=== PATIENT | female | born 1930 | race Caucasian/White ===

== ENCOUNTER 2017-12-06 20:07 | Emergency (ER) | payer MEDICARE, BC ==
--- OUTSIDE RECORDS SUMMARY | 2017-12-06 20:37 | XMS REPORT ---
:1930 External Reference #:[id number] Author Organization [employer] Address [address] [place] [address] Phone [phone] Care Team Providers Name Role Phone Jenni Johnston MD Primary Care Physician Unavailable Payers Type Date Identification Numbers Payment Provider Subscriber Medicare Primary Policy Number: [id number] Medicare Reena Denis PayID: [id number] [address] [place] [address] [facility] Part B Policy Number: [id number] [facility] Reena Denis PayID: [id number] [address] [place] [address] Problems Date Description Provider Status Onset: 03/21/2013 Aortic valve disorder Shekhar Guerrier M.D., [facility], Active [facility] Onset: 03/21/2013 Chronic ischemic heart disease Shekhar Guerrier M.D., [facility], Active [facility] Onset: 03/21/2013 Benign essential hypertension Shekhar Guerrier M.D., [facility], Active [facility] Onset: 03/21/2013 Hyperlipidemia Shekhar Guerrier M.D., [facility], Active [facility] Onset: 03/21/2013 Mitral valve disorder Shekhar Guerrier M.D., [facility], Active [facility] Onset: 05/07/2013 Complete atrioventricular block Shekhar Guerrier M.D., [facility], Active [facility] Onset: 05/07/2013 Dyspnea Shekhar Guerrier M.D., [facility], Active [facility] Onset: 11/02/2013 Essential hypertension Shekhar Guerrier M.D., [facility], Active [facility] Onset: 06/02/2015 Cardiac pacemaker in situ Shekhar Guerrier M.D., [facility], Active [facility] Onset: 06/14/2016 Heart valve replacement Shekhar Guerrier M.D., [facility], Active [facility] Onset: 12/15/2016 Athscl heart disease of [place] Shekhar Guerrier M.D., [facility], Active coronary artery w/o ang pctrs [facility] Family History Date Family Member(s) Problem(s) Comments Father Hypertension Father Heart Disease Father Stroke Mother Non Hodgkin's Lymphoma Social History Type Date Description Comments Marital Status Lives With Alone Occupation Retired Smokeless Tobacco Never Used Smokeless Tobacco ETOH Use Occasionally consumes wine one glass nightly with dinner Smoking Patient is a former smoker quit in 1980 Recreational Drug Use Denies Drug Use Daily Caffeine Consumes on average 2 cups of regular coffee per day Exercise Type/Frequency Exercises rarely Allergies, Adverse Reactions, Alerts Date Description Reaction Status Severity Comments 11/30/2017 Percocet active 11/14/2012 NKDA inactive 11/30/2017 NKDA inactive Medications Medication Date Status Form Strength Qnty SIG Indications Ordering Provider Metoprolol 12/14 Active Tablets 25mg 90tab 1 by mouth Kamron S. Succinate ER 24HR s every day DO Price [facility] Methotrexate 06/07 Active Tablets 2.5mg 2 tabs po Tuesday Atorvastatin Active Tablets 20mg 1 po qd Cardi, (adjusted Jose Armando, from 40 mg MD daily by PCP) Divalproex Sodium Active Tablets 125mg [address] Jose Armando MD Bupropion HCL SR Active Tablets 100mg 1 po qd Kooper ER 12HR , Michelle, G[employer] APPLIANCE ADJUSTER Ropinirole HCL Active Tablets 0.5mg 1 po bid Restasis Active Emulsion 0.05% one stone each eye bid Flax Oil Active Oil qd Calcium 500 +D Active qd Vitamin C Active 500mg qd Aspirin Active Tablets 81mg 1 by mouth every day Ocuvite Active Tablets 1 po bid Unknown Preservision /0000 Fish Oil Active Capsules 1000mg 1 by mouth Unknown / every day Multivitamins Active Capsules 1 by mouth Unknown / every day Genteal Active Gel 0.25-0.3% 1 gtt qid Unknown /0000 in each eye Proventil HFA Active Aerosol 108(90Bas 2 puffs by Unknown /0000 e) mouth every mcg/Act 4 hours as needed Spiriva Handihaler Active Capsules 18mcg 1 Unknown / inhalation by mouth every morning Losartan Potassium Active Tablets 25mg 1 by mouth Unknown / every day Amlodipine Active Tablets 5mg 1 by mouth Unknown Bes every day Methylprednisolone 06/07 Hx 4mg twice weekly - 12/14 Metoprolol 11/02 Hx Tablets 25mg 90tab 1 tablet by Shekhar Rudolph ER 24HR s mouth daily Kelle Guerrier M.D., 11/01 [facility] 09/20 Hx Tablets 5mg 90tab 1 po daily Tito Kelle Heath M.D. 11/01 Losartan Potassium Hx 1 po qd Cardina, Kelle Suárez MD 05/06 Omeprazole Hx Capsules 20mg 1 po bid Cardina, Kelle Guzman MD 06/13 Aspirin Hx Tablets 325mg 1 po qd Unknown / - 11/01 Ocuvite Extra Hx qd Unknown / - 06/04 Losartan Potassium Hx Tablets 100mg 1 po qd Unknown - 05/31 Probiotic Hx Capsules 1 by mouth Unknown / every day - 06/13 Diclofenac Sodium Hx Tablets 50mg take one Unknown tablet by - mouth twice 06/13 a day needed Folic Acid Hx Tablets 1mg 1 by mouth Unknown / every day Medications Administered in Office Medication Date Status Form Strength Qnty SIG Indications Ordering Provider Inj, Administered Injection Miriam Regadenoson, Arsenio Orosco, 0.1 MG Josemanuel Technetium TC Administered Injection Miriam 99M Paulina Timmons M.D. Per Unit Dose Up To 40 Millicuries Vital Signs Date Vital Result Comment 11/30/2017 Height 59 inches 4'11" Weight 97.00 lb Heart Rate 58 /min BP Systolic 116 mmHg BP Diastolic 72 mmHg Respiratory Rate 16 /min Body Temperature 97.4 F BMI (Body Mass Index) 19.6 kg/m2 01/12/2017 Height 57 inches 4'9" Weight 102.00 lb Heart Rate 60 /min BP Systolic 98 mmHg BP Diastolic 66 mmHg Respiratory Rate 15 /min Body Temperature 97.7 F BMI (Body Mass Index) 22.1 kg/m2 12/15/2016 Height 57 inches 4'9" Weight 102.00 lb with shoes Heart Rate 64 /min sit and 60 stand BP Systolic Sitting 106 mmHg Rue reg cuff BP Diastolic Sitting 80 mmHg Rue reg cuff BP Systolic Standing 100 mmHg Rue reg cuff BP Diastolic Standing 74 mmHg Rue reg cuff Respiratory Rate 17 /min BMI (Body Mass Index) 22.1 kg/m2 Ejection Fraction 60-65% date 10/18/13 ECHO 12/02/2016 Height 57 inches 4'9" Weight 100.00 lb Heart Rate 60 /min BP Systolic 115 mmHg BP Diastolic 64 mmHg Body Temperature 97.7 F BMI (Body Mass Index) 21.6 kg/m2 11/02/2016 Height 57 inches 4'9" Weight 100.00 lb Heart Rate 68 /min BP Systolic Sitting 100 mmHg BP Diastolic Sitting 65 mmHg Body Temperature 98.3 F BMI (Body Mass Index) 21.6 kg/m2 06/14/2016 Height 58 inches 4'10" Weight 103.50 lb with shoes Heart Rate 58 /min BP Systolic Sitting 118 mmHg LA reg cuff BP Diastolic Sitting 58 mmHg LA reg cuff BP Systolic Standing 128 mmHg LA reg cuff BP Diastolic Standing 68 mmHg LA reg cuff BMI (Body Mass Index) 21.6 kg/m2 06/02/2015 Height 58 inches 4'10" Weight 109.00 lb Heart Rate 64 /min 70 BP Systolic Sitting 118 mmHg right arm, reg cuff BP Diastolic Sitting 60 mmHg right arm, reg cuff BP Systolic Standing 118 mmHg right arm, reg cuff BP Diastolic Standing 58 mmHg right arm, reg cuff Respiratory Rate 20 /min BMI (Body Mass Index) 22.8 kg/m2 Ejection Fraction 60-65% 10/18/13 06/05/2014 Height 58 inches 4'10" Weight 108.00 lb Heart Rate 62 /min 64 BP Systolic Sitting 116 mmHg right arm, reg cuff BP Diastolic Sitting 54 mmHg right arm, reg cuff BP Systolic Standing 116 mmHg right arm, reg cuff BP Diastolic Standing 56 mmHg right arm, reg cuff Respiratory Rate 20 /min BMI (Body Mass Index) 22.6 kg/m2 12/06/2013 Height 58 inches 4'10" Weight 110.00 lb Heart Rate 64 /min BP Systolic Sitting 124 mmHg LA, reg cuff BP Diastolic Sitting 76 mmHg LA, reg cuff BP Systolic Standing 126 mmHg LA BP Diastolic Standing 68 mmHg LA Respiratory Rate 16 /min BMI (Body Mass Index) 23.0 kg/m2 11/02/2013 Height 58 inches 4'10" Weight 110.00 lb Heart Rate 80 /min 86 BP Systolic Sitting 148 mmHg left arm, reg cuff BP Diastolic Sitting 64 mmHg left arm, reg cuff BP Systolic Standing 132 mmHg left arm, reg cuff BP Diastolic Standing 60 mmHg left arm, reg cuff Respiratory Rate 20 /min BMI (Body Mass Index) 23.0 kg/m2 05/29/2013 Height 57 inches 4'9" Weight 115.25 lb with shoes Heart Rate 76 /min 76 sit and stand HR reg BP Systolic Sitting 114 mmHg Ra reg cuff BP Diastolic Sitting 60 mmHg Ra reg cuff BP Systolic Standing 120 mmHg Ra reg cuff BP Diastolic Standing 66 mmHg Ra reg cuff Respiratory Rate 17 /min BMI (Body Mass Index) 24.9 kg/m2 05/07/2013 Height 57 inches 4'9" Weight 113.00 lb no shoes Heart Rate 74 /min BP Systolic Sitting 136 mmHg Ra, reg cuff BP Diastolic Sitting 68 mmHg Ra, reg cuff BP Systolic Standing 138 mmHg BP Diastolic Standing 70 mmHg Respiratory Rate 14 /min BMI (Body Mass Index) 24.5 kg/m2 03/21/2013 Height 57 inches 4'9" Weight 112.00 lb Heart Rate 8478 /min BP Systolic Sitting 146 mmHg Ra reg cuff BP Diastolic Sitting 66 mmHg Ra reg cuff BP Systolic Standing 140 mmHg Ra BP Diastolic Standing 70 mmHg Ra Respiratory Rate 18 /min BMI (Body Mass Index) 24.2 kg/m2 11/14/2012 Height 59 inches 4'11" Weight 112.00 lb Heart Rate 73 /min BP Systolic 155 mmHg BP Diastolic 64 mmHg BMI (Body Mass Index) 22.6 kg/m2 Results Test Date Test Result H/L Range Note Laboratory test finding 06/18/2015 C Reactive Protein 62.95 mg/L High < 5.00 1 Rheumatoid Factor <15 IU/mL <15 2 Lipid Profile (Trig/Chol/HDL) 06/18/2015 Triglycerides 91 mg/dL 3 Cholesterol 123 mg/dL 4 HDL Cholesterol 37.8 mg/dL 5 LDL Cholesterol 67 mg/dL 6 Comp Metabolic Panel 06/18/2015 Sodium 136 mmol/L 133-145 Potassium 4.5 mmol/L 3.5-5.0 Chloride 104 mmol/L 101-111 Co2 Carbon Dioxide 26 mmol/L 22-32 Anion Gap 6 mmol/L 2-11 Glucose 89 mg/dL 70-100 Blood Urea Nitrogen 15 mg/dL 6-24 Creatinine 0.92 mg/dL 0.51-0.95 BUN/Creatinine Ratio 16.3 8-20 Calcium 8.8 mg/dL 8.6-10.3 Total Protein 5.9 g/dL Low 6.4-8.9 Albumin 3.1 g/dL Low 3.2-5.2 Globulin 2.8 g/dL 2-4 Albumin/Globulin Ratio 1.1 1-3 Total Bilirubin 0.30 mg/dL 0.2-1.0 Alkaline Phosphatase 72 U/L 34-104 Alt 17 U/L 7-52 Ast 20 U/L 13-39 Egfr Non- 58.0 >60 Egfr 74.6 >60 7 CBC Auto Diff 06/18/2015 White Blood Count 7.7 10^3/uL 3.5-10.8 Red Blood Count 3.69 10^6/uL Low 4.0-5.4 Hemoglobin 11.2 g/dL Low 12.0-16.0 Hematocrit 34 % Low 35-47 Mean Corpuscular Volume 91 fL 80-97 Mean Corpuscular Hemoglobin 31 pg 27-31 Mean Corpuscular HGB Conc 34 g/dL 31-36 Red Cell Distribution Width 13 % 10.5-15 Platelet Count 283 10^3/uL 150-450 Mean Platelet Volume 7 um3 Low 7.4-10.4 Abs Neutrophils 5.1 10^3/uL 1.5-7.7 Abs Lymphocytes 1.4 10^3/uL 1.0-4.8 Abs Monocytes 0.9 10^3/uL High 0-0.8 Abs Eosinophils 0.2 10^3/uL 0-0.6 Abs Basophils 0.1 10^3/uL 0-0.2 Abs Nucleated RBC 0 10^3/uL Granulocyte % 66.4 % 38-83 Lymphocyte % 18.4 % Low 25-47 Monocyte % 12.1 % High 1-9 Eosinophil % 2.4 % 0-6 Basophil % 0.7 % 0-2 Nucleated Red Blood Cells % 0 Inr/Protime 06/24/2014 Inr 1.12 High 0.78-1.07 Laboratory test finding 06/24/2014 Lactic Acid 1.6 mmol/L 0.5-2.2 Comp Metabolic Panel 06/24/2014 Sodium 134 mmol/L 133-145 Potassium 4.3 mmol/L 3.5-5.0 Chloride 101 mmol/L 101-111 Co2 Carbon Dioxide 27 mmol/L 22-32 Anion Gap 6 mmol/L 2-11 Glucose 91 mg/dL 70-100 Blood Urea Nitrogen 37 mg/dL High 6-24 Creatinine 1.40 mg/dL High 0.51-0.95 BUN/Creatinine Ratio 26.4 High 8-20 Calcium 9.1 mg/dL 8.6-10.3 Total Protein 6.4 g/dL 6.4-8.9 Albumin 3.6 g/dL 3.2-5.2 Globulin 2.8 g/dL 2-4 Albumin/Globulin Ratio 1.3 1-3 Total Bilirubin 0.80 mg/dL 0.2-1.0 Alkaline Phosphatase 75 U/L 34-104 Alt 10 U/L 7-52 Ast 17 U/L 13-39 Egfr Non- 35.8 >60 Egfr 46.1 >60 8 Laboratory test finding 06/24/2014 Lipase < 3 U/L Low 11.0-82.0 Creatine Kinase 61 U/L 10-223 Troponin I 0.04 ng/mL High <0.03 9 C Reactive Protein 189.60 mg/L High < 5.00 10 Urinalysis Profile 06/24/2014 Urine Color Yellow Urine Appearance Cloudy Urine Specific [place] 1.011 1.010-1.030 Urine pH 5.0 5-9 Urine Urobilinogen Negative Negative Urine Ketones Negative Negative Urine Protein Negative Negative Urine Leukocytes 2+ Negative Urine Blood 1+ Negative Urine Nitrite Positive Negative Urine Bilirubin Negative Negative Urine Glucose Negative Negative Urine White Blood Cell 2+(11-20/hpf) Absent Urine Red Blood Cell Trace(0-2/hpf) Absent Urine Bacteria 3+ Absent Urine Squamous Epithelial Cell Present Absent Urine Hyaline Casts Present Absent CBC Auto Diff 06/24/2014 White Blood Count 9.3 10^3/uL 4.8-10.8 Red Blood Count 3.94 10^6/uL Low 4.0-5.4 Hemoglobin 12.0 g/dL 12.0-16.0 Hematocrit 37 % 35-47 Mean Corpuscular Volume 93 fL 80-97 Mean Corpuscular Hemoglobin 31 pg 27-31 Mean Corpuscular HGB Conc 33 g/dL 31-36 Red Cell Distribution Width 15 % 10.5-15 Platelet Count 143 10^3/uL Low 150-450 Mean Platelet Volume 8 um3 7.4-10.4 Abs Neutrophils 5.9 10^3/uL 1.5-7.7 Abs Lymphocytes 2.3 10^3/uL 1.0-4.8 Abs Monocytes 1.1 10^3/uL High 0-0.8 Abs Eosinophils 0.1 10^3/uL 0-0.6 Abs Basophils 0 10^3/uL 0-0.2 Abs Nucleated RBC 0.01 10^3/uL Granulocyte % 62.9 % 38-83 Lymphocyte % 24.8 % Low 25-47 Monocyte % 11.2 % High 1-9 Eosinophil % 0.7 % 0-6 Basophil % 0.4 % 0-2 Nucleated Red Blood Cells % 0.1 Laboratory test finding 10/17/2013 Troponin I 0.04 ng/mL <0.03 11 Myoglobin 62.6 ng/mL 14.3-65.8 TSH (Thyroid Stimulating Horm) 1.66 IU/mL 0.34-5.60 CKMB 10/17/2013 CKMB ng/mL 6.7 ng/mL High 0.6-6.3 Laboratory test finding 10/17/2013 Creatine Kinase 120 U/L 10-223 Comp Metabolic Panel 10/17/2013 Sodium 135 mmol/L 133-145 Potassium 4.2 mmol/L 3.7-5.6 Chloride 100 mmol/L Low 101-111 Co2 Carbon Dioxide 28 mmol/L 22-32 Anion Gap 7 mmol/L 2-11 Glucose 70 mg/dL 70-100 Blood Urea Nitrogen 16 mg/dL 6-24 Creatinine 0.88 mg/dL 0.51-0.95 BUN/Creatinine Ratio 18.2 8-20 Calcium 9.5 mg/dL 8.6-10.3 Total Protein 7.0 g/dL 6.4-8.9 Albumin 4.0 g/dL 3.2-5.2 Globulin 3.0 g/dL 2-4 Albumin/Globulin Ratio 1.3 1-3 Total Bilirubin 0.50 mg/dL 0.2-1.0 Alkaline Phosphatase 66 U/L 34-104 Alt 15 U/L 7-52 Ast 21 U/L 13-39 Egfr Non- 61.4 >60 Egfr 78.9 >60 12 Laboratory test finding 10/17/2013 B Type Natriuretic 101 pg/mL 13 Peptide Inr/Protime 10/17/2013 Inr 0.94 0.85-1.06 CBC Auto Diff 10/17/2013 White Blood Count 5.0 10^3/uL 4.8-10.8 Red Blood Count 4.02 10^6/uL 4.0-5.4 Hemoglobin 12.3 g/dL 12.0-16.0 Hematocrit 36 % 35-47 Mean Corpuscular Volume 90 fL 80-97 Mean Corpuscular Hemoglobin 31 pg 27-31 Mean Corpuscular HGB Conc 34 g/dL 31-36 Red Cell Distribution Width 14 % 10.5-15 Platelet Count 157 10^3/uL 150-450 Mean Platelet Volume 8 um3 7.4-10.4 Abs Neutrophils 2.6 10^3/uL 1.5-7.7 Abs Lymphocytes 1.7 10^3/uL 1.0-4.8 Abs Monocytes 0.5 10^3/uL 0-0.8 Abs Eosinophils 0.1 10^3/uL 0-0.6 Abs Basophils 0 10^3/uL 0-0.2 Abs Nucleated RBC 0 10^3/uL Granulocyte % 52.8 % 38-83 Lymphocyte % 34.4 % 25-47 Monocyte % 10.8 % High 1-9 Eosinophil % 1.3 % 0-6 Basophil % 0.7 % 0-2 Nucleated Red Blood Cells % 0.1 Comp Metabolic Panel 09/08/2013 Sodium 139 mmol/L 133-145 14 Potassium 3.8 mmol/L 3.7-5.6 14 Chloride 104 mmol/L 101-111 14 Co2 Carbon Dioxide 27 mmol/L 22-32 14 Anion Gap 8 mmol/L 2-11 14 Glucose 91 mg/dL 70-100 14 Blood Urea Nitrogen 23 mg/dL 6-24 14 Creatinine 1.05 mg/dL High 0.51-0.95 14 BUN/Creatinine Ratio 21.9 High 8-20 14 Calcium 9.3 mg/dL 8.6-10.3 14 Total Protein 6.3 g/dL Low 6.4-8.9 14 Albumin 3.6 g/dL 3.2-5.2 14 Globulin 2.7 g/dL 2-4 14 Albumin/Globulin Ratio 1.3 1-3 14 Total Bilirubin 0.70 mg/dL 0.2-1.0 14 Alkaline Phosphatase 74 U/L 34-104 14 Alt 38 U/L 7-52 14 Ast 38 U/L 13-39 14 Egfr Non- 50.1 >60 14 Egfr 64.4 >60 14, 15 Lipid Profile (Trig/Chol/HDL) 09/08/2013 Triglycerides 79 mg/dL 14, 16 Cholesterol 141 mg/dL 14, 17 HDL Cholesterol 65.2 mg/dL 14, 18 LDL Cholesterol 60 mg/dL 14, 19 CBC Auto Diff 09/08/2013 White Blood Count 8.6 10^3/uL 4.8-10.8 14 Red Blood Count 3.86 10^6/uL Low 4.0-5.4 14 Hemoglobin 11.9 g/dL Low 12.0-16.0 14 Hematocrit 35 % 35-47 14 Mean Corpuscular Volume 91 fL 80-97 14 Mean Corpuscular Hemoglobin 31 pg 27-31 14 Mean Corpuscular HGB Conc 34 g/dL 31-36 14 Red Cell Distribution Width 14 % 10.5-15 14 Platelet Count 145 10^3/uL Low 150-450 14 Mean Platelet Volume 8 um3 7.4-10.4 14 Abs Neutrophils 5.2 10^3/uL 1.5-7.7 14 Abs Lymphocytes 2.1 10^3/uL 1.0-4.8 14 Abs Monocytes 1.1 10^3/uL High 0-0.8 14 Abs Eosinophils 0.1 10^3/uL 0-0.6 14 Abs Basophils 0 10^3/uL 0-0.2 14 Abs Nucleated RBC 0.01 10^3/uL 14 Granulocyte % 60.8 % 38-83 14 Lymphocyte % 24.5 % Low 25-47 14 Monocyte % 13.2 % High 1-9 14 Eosinophil % 1.0 % 0-6 14 Basophil % 0.5 % 0-2 14 Nucleated Red Blood Cells % 0.1 14 1 Acute inflammation: >10.00 2 Test Performed by: [address] [address] Emr Analyst: Alexandre Chambers II, M.D., Ph.D. 3 Desirable <150 Borderline high 150-199 High 200-499 Very High >500 4 Desirable <200 Borderline high 200-239 High >239 5 Low <40 Desirable: 40-60 High: >60 6 Desirable: <100 mg/dL Near Optimal: 100-129 mg/dL Borderline High: 130-159 mg/dL High: 160-189 mg/dL Very High: >189 mg/dL 7 Because ethnic data is not always readily available, this report includes an eGFR for both -Americans and non- Americans. The National Kidney Disease Education Program (NKDEP) does not endorse the use of the MDRD equation for patients that are not between the ages of 18 and 70, are , have extremes of body size, muscle mass, or nutritional status, or are non- or non-. According to the National Kidney Foundation, irrespective of diagnosis, the stage of the disease is based on the level of kidney function: Stage Description GFR(mL/min/1.73 m(2)) 1 Kidney damage with normal or decreased GFR 90 2 Kidney damage with mild decrease in GFR 60-89 3 Moderate decrease in GFR 30-59 4 Severe decrease in GFR 15-29 5 Kidney failure <15 (or dialysis) 8 Because ethnic data is not always readily available, this report includes an eGFR for both -Americans and non- Americans. The National Kidney Disease Education Program (NKDEP) does not endorse the use of the MDRD equation for patients that are not between the ages of 18 and 70, are , have extremes of body size, muscle mass, or nutritional status, or are non- or non-. According to the National Kidney Foundation, irrespective of diagnosis, the stage of the disease is based on the level of kidney function: Stage Description GFR(mL/min/1.73 m(2)) 1 Kidney damage with normal or decreased GFR 90 2 Kidney damage with mild decrease in GFR 60-89 3 Moderate decrease in GFR 30-59 4 Severe decrease in GFR 15-29 5 Kidney failure <15 (or dialysis) 9 Reference Range and Interpretation: TnI (ng/mL) Interpretation Less Than 0.03 ng/mL Not supportive of diagnosis of NE 0.03 - 0.50 ng/mL Indeterminate: suggest serial studies if clinically indicated. Greater than 0.5 ng/mL Consistent with diagnosis of NE 10 Acute inflammation: >10.00 11 Result TnIDx:0.04 Called to [id number] at: 19:31:03 by:[id number] Read back by: [id number] Reference Range and Interpretation: TnI (ng/mL) Interpretation Less Than 0.03 ng/mL Not supportive of diagnosis of NE 0.03 - 0.50 ng/mL Indeterminate: suggest serial studies if clinically indicated. Greater than 0.5 ng/mL Consistent with diagnosis of NE 12 Because ethnic data is not always readily available, this report includes an eGFR for both -Americans and non- Americans. The National Kidney Disease Education Program (NKDEP) does not endorse the use of the MDRD equation for patients that are not between the ages of 18 and 70, are , have extremes of body size, muscle mass, or nutritional status, or are non- or non-. According to the National Kidney Foundation, irrespective of diagnosis, the stage of the disease is based on the level of kidney function: Stage Description GFR(mL/min/1.73 m(2)) 1 Kidney damage with normal or decreased GFR 90 2 Kidney damage with mild decrease in GFR 60-89 3 Moderate decrease in GFR 30-59 4 Severe decrease in GFR 15-29 5 Kidney failure <15 (or dialysis) 13 >100 to <200 pg/mL: likely compensated congestive heart failure (CHF) 200 to 400 pg/mL: likely moderate CHF >400 pg/mL: likely moderate to severe CHF [place] [facility] 14 PT IS FASTING 15 Because ethnic data is not always readily available, this report includes an eGFR for both -Americans and non- Americans. The National Kidney Disease Education Program (NKDEP) does not endorse the use of the MDRD equation for patients that are not between the ages of 18 and 70, are , have extremes of body size, muscle mass, or nutritional status, or are non- or non-. According to the National Kidney Foundation, irrespective of diagnosis, the stage of the disease is based on the level of kidney function: Stage Description GFR(mL/min/1.73 m(2)) 1 Kidney damage with normal or decreased GFR 90 2 Kidney damage with mild decrease in GFR 60-89 3 Moderate decrease in GFR 30-59 4 Severe decrease in GFR 15-29 5 Kidney failure <15 (or dialysis) 16 Desirable <150 Borderline high 150-199 High 200-499 Very High >500 17 Desirable <200 Borderline high 200-239 High >239 18 Low <40 Desirable: 40-60 High: >60 19 Desirable <100 Near Optimal 100-129 Borderline high 130-159 High 160-189 Very High >189 Procedures Date CPT Code Description Status 09/09/2017 63706 Pace Maker Eval W/Iterative Adjment Dual Lead Completed 09/09/2017 48304 Pace Maker Eval W/Iterative Adjment Dual Lead Completed 03/28/2017 29006 Pace Maker Eval W/Iterative Adjment Dual Lead Completed 03/28/2017 69478 Pace Maker Eval W/Iterative Adjment Dual Lead Completed 02/09/2017 26494 ECHO Transthorasic Realtime 2D W Doppler & Color Flow Completed Hosp 01/18/2017 35965 Treadmill Interp/Report Only Completed 01/18/2017 94501 Stress Test Supervsn W/Out I/R Completed 12/15/2016 53281 EKG Tracing & Interpretation Completed 09/16/2016 25882 Pace Maker Eval W/Iterative Adjment Dual Lead Completed 09/16/2016 96792 Pace Maker Eval W/Iterative Adjment Dual Lead Completed 06/14/2016 71835 EKG Tracing & Interpretation Completed 2016 40008 Pace Maker Eval W/Iterative Adjment Dual Lead Completed 09/11/2015 27613 Pace Maker Eval W/Iterative Adjment Dual Lead Completed 06/02/2015 52300 EKG Tracing & Interpretation Completed 04/09/2015 08118 Pace Maker Eval W/Iterative Adjment Dual Lead Completed 10/14/2014 47841 Interrogation Device Evbelen In Person W/ Completed Analysis,Single,Dual,Mul 10/02/2014 71036 Interrogation Device Eval In Person W/DR Completed Analysis,Single,Dual,Mul 06/05/2014 11100 EKG Tracing & Interpretation Completed 04/15/2014 12991 Interrogation Device Eval In Person W/DR Completed Analysis,Single,Dual,Mul 11/02/2013 89230 EKG Tracing & Interpretation Completed 10/18/2013 80815 Intravascular Blood Flow Velocity Completed 10/18/2013 98211 Cath PLMT&NJX L Ventriculog Img S&I Completed 10/18/2013 46213 ECHO Transthorasic Realtime 2D W Doppler & Color Flow Completed Hosp 10/08/2013 68260 Pace Maker Eval W/Iterative Adjment Dual Lead Completed 05/23/2013 23050 ECHO Transthorasic Realtime 2D W Doppler & Color Flow Completed Hosp 03/26/2013 97143 Stress Test Completed 03/26/2013 14842 Myocardial Perfusion Imaging Tomographic (Spect) Completed Multiple Studies 03/21/2013 74309 EKG Tracing & Interpretation Completed 2013 48953 Pace Maker Eval W/Iterative Adjment Dual Lead Completed 09/20/2012 70706 Pace Maker Eval W/Iterative Adjment Dual Lead Completed 03/16/2012 09390 Pace Maker Eval W/Iterative Adjment Dual Lead Completed 01/11/2012 63407 ECHO Transthoracic, Real-Time 2D With Doppler And Color Completed Flow 05/03/2011 16759 EKG, Interpretation Only Completed Encounters Type Date Location Provider CPT E/M Dx Office Visit 01/12/2017 [facility] Rosanna Burciaga, [place] [address] M76.821 9:45a Of C.M.AArleen M76.822 M65.871 Office Visit 12/15/2016 11:20a [facility] Shekhar Guerrier M.D., [address] I10 AT [facility], FSCAI Z95.2 I25.10 Z95.0 Office Visit 12/02/2016 10:30a [facility] [address] M76.821 C.MDarien Abernathy Office Visit 11/02/2016 10:15a [facility], 74244 M76.821 C.M.AArleen Abernathy M25.572 Office Visit 06/14/2016 11:20a [facility] Shekhar Guerrier M.D., 656[address] Z95.0 Battery Service Technician AT [facility], [facility] I25.10 Z95.2 I10 E78.5 Office Visit 06/02/2015 1:00p [facility] Wen Guerrier M.D., 98547 I25.9 Battery Service Technician AT [facility], [facility] I10 I35.0 Z95.0 E78.5 Office Visit 06/25/2014 2:36p [facility], Sarah Olivarez, 67803 557.9 Hospitalists N.PArleen 564.1 401.9 Office Visit 06/24/2014 2:35p [facility], Dylan Dalton, 57919 557.9 Hospitalists Josemanuel 564.1 401.9 Office Visit 06/05/2014 1:40p [facility] Cardiology Wen Guerrier M.D., 51366 414.9 Battery Service Technician AT [facility], [facility] 424.1 401.9 272.4 426.0 Office Visit 12/06/2013 2:40p [facility] Shekhar Guerrier M.D., 47740 414.9 Battery Service Technician AT [facility], [facility] 401.9 272.4 Office Visit 11/02/2013 2:45p [facility] Wen Guerrier M.D., 34847 V58.41 Battery Service Technician AT [facility], [facility] 414.9 401.9 272.4 Office Visit 10/19/2013 1:31p [facility], Dylan Dalton, 45310 411.1 Hospitalists Josemanuel 401.9 272.4 492.8 Office Visit 10/18/2013 2:01p [facility] Wen Guerrier M.D., 57858 410.70 [facility] Office Visit 10/18/2013 1:30p [facility],hermann Dalton, 10266 410.70 Hospitalists Josemanuel 401.9 272.4 492.8 Office Visit 10/17/2013 1:26p [facility] [place], [address] 410.70 Assoc, Hospitalists Josemanuel 401.9 272.4 492.8 Office Visit 05/29/2013 2:45p [facility] Shekhar Guerrier M.D., 66924 424.1 [facility] AT [facility], [facility] 401.1 414.9 786.05 272.4 Office Visit 05/07/2013 3:30p [facility] Wen Guerrier M.D., 51830 424.1 [facility] AT [facility], [facility] 401.1 414.9 426.0 786.05 Office Visit 03/21/2013 1:00p [facility] Shekhar Guerrier M.D., 82724 424.1 [facility], [facility] 414.9 401.1 272.4 424.0 Office Visit 11/14/2012 3:15p Orthopedic Services Anel Dean, 96828 842.12 Of Ron Abernathy Office Visit 09/20/2012 3:15p [facility] Tito Gorman, 15663 426.0 [facility] M.Edis 424.1 414.9 Office Visit 03/16/2012 12:15p [facility] Tito Gorman, 98130 424.1 [facility] M.Edis 426.0 Office Visit 01/14/2012 11:30a [facility] Tito Gorman, 43897 424.1 [facility] M.DArleen 414.9 Office Visit 09/30/2006 2:00p Neurosurgery Services Floyd Miller, 52855 781.2 Of [facility] Josemanuel Plan of Care Future Appointment(s):12/26/2017 3:40 pm - Evelin Matos M.D. at [facility]12/06/2017 1:30 pm - Ica Pacer Schedule at [facility]11/30/2017 - Los Hsu M.D.K43.9 Ventral hernia without obstruction or gangreneFollow up:As needed
[2017-12-06 22:34] LABS: ABS Basophils 0 10^3/ul (0-0.2); ABS Eosinophils 0.1 10^3/ul (0-0.6); ABS Lymphocytes 2.2 10^3/ul (1.0-4.8); ABS Monocytes 0.5 10^3/ul (0-0.8); ABS Neutrophils 2.4 10^3/ul (1.5-7.7); ABS Nucleated RBC 0 10^3/ul; Eosinophil % 2.7 % (0-6); Hematocrit 34 % (35-47); Hemoglobin 11.2 g/dl (12.0-16.0); Lymphocyte % 41.2 % (25-47); Mean Corpuscular HGB Conc 33 g/dl (31-36); Mean Corpuscular Hemoglobin 32 pg (27-31); Mean Corpuscular Volume 96 fL (80-97); Mean Platelet Volume 7.3 um3 (7.4-10.4); Nucleated Red Blood Cells % 0; Platelet Count 174 10^3/ul (150-450); Red Blood Count 3.52 10^6/ul (4.00-5.40); Red Cell Distribution Width 15 % (10.5-15); White Blood Count 5.3 10^3/ul (3.5-10.8)
[2017-12-06 22:48] LABS: INR 0.92 (0.77-1.02)
[2017-12-06 22:52] LABS: EGFR Non-African American 67.8 (>60)
--- NOTE | 2017-12-06 23:21 | RAD ---
EXAM: CT Head Without Intravenous Contrast EXAM DATE/TIME: 12/06/2017 10:36 PM CLINICAL HISTORY: 87 years old, female; Condition or disease; Other: Here for heart monitoring; Additional info: TIA TECHNIQUE: Axial computed tomography images of the head/brain without intravenous contrast. All CT scans at this facility use at least one of these dose optimization techniques: automated exposure control; mA and/or kV adjustment per patient size (includes targeted exams where dose is matched to clinical indication); or iterative reconstruction. COMPARISON: No relevant prior studies available. FINDINGS: Brain: Mild periventricular and subcortical low attenuation without adjacent mass effect. Ventricles: The ventricles and extraventricular CSF spaces are widened although symmetrically positioned along the midline. Alejandro-foramen magnum. Bones/joints: No fractures. No suspicious bone lesions. Sinuses: Normal as visualized. No acute sinusitis. Mastoid air cells: Normal as visualized. No mastoid effusion. Orbits: There have been bilateral lens replacements. Soft tissues: Normal. Vasculature: The vasculature demonstrates diffuse marked atherosclerotic calcification. IMPRESSION: 1. No acute intracranial abnormality. 2. Age-related atrophy and mild chronic small vessel ischemic disease. To contact [facility] with a general question: [facility] - [phone] For direct physician to physician contact: Physician Hotline - [phone] [facility] ([facility] Facility ID #[id number])
--- NOTE | 2017-12-06 23:36 | ED ---
Neurological HPI - HPI Summary HPI Summary: A 87 y/o female presents to [facility] c/o foggy vision since today. She had an episode where her vision became foggy, not dark, for 5 mins. Opening and closing her eyes cleared up her vision. She had her pacemaker checked today at 13:30 and her battery was getting low. She has a PMHx of Fuchs dystrophy and RA but denies any prior CVA or leg pain. She takes ASA and also c/o CP. She has trouble walking because of RA and fell 4-5 years ago. - History of Current Complaint Chief Complaint: EDGeneral Stated Complaint: MONITOR HER HEART Time Seen by Provider: 12/06/17 21:47 Hx Obtained From: Patient Onset/Duration: Sudden Onset, Started hours ago, Resolved Onset Severity: Moderate Current Severity: Moderate Pain Intensity: 0 Pain Scale Used: 0-10 Numeric Character: Other: - foggy vision - Allergy/Home Medications Allergies/Adverse Reactions: Allergies Allergy/AdvReac Type Severity Reaction Status Date / Time No Known Allergies Allergy Verified 12/06/17 20:19 Home Medications: Home Medications Dextran/Hypromellose/Glycerin [Genteal Tears 0.1%-0.2%-0.3%] 1 drop OP DAILY 11/15 [History Confirmed 12/06/17] Folic Acid 1 mg PO DAILY 12/06/17 [History Confirmed 12/06/17] PMH/Surg Hx/FS Hx/Imm Hx Endocrine/Hematology History: Denies: Hx Diabetes Cardiovascular History: Reports: Hx Angina, Hx Coronary Artery Disease, Hx Embolism, Hx Hypercholesterolemia, Hx Hypertension, Hx Pacemaker/ICD, Hx Peripheral Vascular Disease, Hx Valvular Heart Disease - valve replacement, Other Cardiovascular Problems/Disorders - BLOOD CLOT BTWN HRT AND LUNGS REMOVED Respiratory History: Reports: Hx Chronic Obstructive Pulmonary Disease (COPD), Hx Pulmonary Embolism GI History: Reports: Hx Irritable Bowel, Other GI Disorders - IRRITABLE BOWEL SYNDROME, ISCHEMIC COLITIS History: Denies: Hx Dialysis, Hx Renal Disease Musculoskeletal History: Reports: Hx Arthritis, Hx Rheumatoid Arthritis, Other Musculoskeletal History - RESTLESS LEG Sensory History: Reports: Hx Contacts or Glasses, Hx Macular Degeneration, Hx Hearing Aid, Hx Hearing Problem Opthamlomology History: Reports: Hx Contacts or Glasses, Hx Macular Degeneration Neurological History: Comment Only: Hx Seizures - Taking Depakote but denies seizure hx Psychiatric History: Reports: Hx Anxiety - Cancer History Hx Chemotherapy: No Hx Radiation Therapy: No - Surgical History Surgery Procedure, Year, and Place: open heart, 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, PACER, CORNEA TRANSPLANT,RIGHT CAROTID ENDARTERECTOMY Hx Anesthesia Reactions: No - Immunization History Date of Tetanus Vaccine: unknown Infectious Disease History: No Infectious Disease History: Reports: Hx Shingles Denies: Traveled Outside the [place] in Last 30 Days - Family History Known Family History: Negative: Cardiac Disease, Hypertension, Diabetes - Social History Alcohol Use: Occasionally Substance Use Type: Reports: None Smoking Status (MU): Former Smoker Review of Systems Negative: Fever Positive: Blurred Vision Negative: Myalgia - leg pain All Other Systems Reviewed And Are Negative: Yes Physical Exam - Summary Physical Exam Summary: VITAL SIGNS: Reviewed. GENERAL: Patient is a well-developed and nourished FEMALE who is lying comfortable in the stretcher. Patient is not in any acute respiratory distress. HEAD AND FACE: No signs of trauma. No ecchymosis, hematomas or skull depressions. No sinus tenderness. EYES: PERRLA, EOMI x 2, No injected conjunctiva, no nystagmus diminished vision left greater than right which is her baseline. EARS: Hearing grossly intact. Ear canals and tympanic membranes are within normal limits. MOUTH: Oropharynx within normal limits. NECK: Supple, trachea is midline, no adenopathy, no JVD, no carotid bruit, no c- spine tenderness, neck with full ROM. CHEST: Symmetric, no tenderness at palpation LUNGS: CTA bilaterally. No wheezing or crackles. CVS: Regular rate and rhythm, S1 and S2 present, no murmurs or gallops appreciated. ABDOMEN: Soft, non-tender. No signs of distention. No rebound no guarding, and no masses palpated. Bowel sounds are normal. EXTREMITIES: FROM in all major joints, no edema, no cyanosis or clubbing, arthritis in both hands with ulnar deviation consistent with RA. NEURO: Alert and oriented x 3. No acute neurological deficits. Speech is normal and follows commands. SKIN: Dry and warm GCS: 15 Triage Information Reviewed: Yes Vital Signs On Initial Exam: Initial Vitals Temp Pulse Resp BP Pulse Ox 97.8 F 60 18 156/66 100 12/06/17 20:14 12/06/17 20:14 10/09/18 20:14 12/06/17 20:14 12/06/17 20:14 Vital Signs Reviewed: Yes Diagnostics - Vital Signs Vital Signs Temp Pulse Resp BP Pulse Ox 12/06/17 21:42 60 22 159/53 98 12/06/17 21:12 60 19 151/62 99 12/06/17 21:11 18 12/06/17 20:14 97.8 F 60 18 156/66 100 - Laboratory Lab Results: Lab Results 12/06/17 12/06/17 12/06/17 Range/Units 22:22 22:22 22:22 WBC 5.3 (3.5-10.8) 10^3/ul RBC 3.52 L (4.00-5.40) 10^6/ul Hgb 11.2 L (12.0-16.0) g/dl Hct 34 L (35-47) % MCV 96 (80-97) fL MCH 32 H (27-31) pg MCHC 33 (31-36) g/dl RDW 15 (10.5-15) % Plt Count 174 (150-450) 10^3/ul MPV 7.3 L (7.4-10.4) um3 Neut % (Auto) 45.9 (38-83) % Lymph % (Auto) 41.2 (25-47) % Norton % (Auto) 9.6 H (0-7) % Eos % (Auto) 2.7 (0-6) % Baso % (Auto) 0.6 (0-2) % Absolute Neuts (auto) 2.4 (1.5-7.7) 10^3/ul Absolute Lymphs (auto) 2.2 (1.0-4.8) 10^3/ul Absolute Monos (auto) 0.5 (0-0.8) 10^3/ul Absolute Eos (auto) 0.1 (0-0.6) 10^3/ul Absolute Basos (auto) 0 (0-0.2) 10^3/ul Absolute Nucleated RBC 0 10^3/ul Nucleated RBC % 0 INR (Anticoag Therapy) 0.92 (0.77-1.02) APTT 26.6 (26.0-36.3) seconds Sodium 136 (135-145) mmol/L Potassium 4.5 (3.5-5.0) mmol/L Chloride 104 (101-111) mmol/L Carbon Dioxide 27 (22-32) mmol/L Anion Gap 5 (2-11) mmol/L BUN 18 (6-24) mg/dL Creatinine 0.80 (0.51-0.95) mg/dL Est GFR ( Amer) 82.1 (>60) Est GFR (Non-Af Amer) 67.8 (>60) BUN/Creatinine Ratio 22.5 H (8-20) Glucose 73 (70-100) mg/dL Lactic Acid (0.5-2.0) mmol/L Calcium 8.9 (8.6-10.3) mg/dL Magnesium 1.9 (1.9-2.7) mg/dL Total Bilirubin 0.40 (0.2-1.0) mg/dL AST 26 (13-39) U/L ALT 22 (7-52) U/L Alkaline Phosphatase 65 (34-104) U/L Troponin I 0.04 H* (<0.04) ng/mL Total Protein 6.1 L (6.4-8.9) g/dL Albumin 3.7 (3.2-5.2) g/dL Globulin 2.4 (2-4) g/dL Albumin/Globulin Ratio 1.5 (1-3) TSH 1.73 (0.34-5.60) mcIU/mL 12/06/17 Range/Units 22:22 WBC (3.5-10.8) 10^3/ul RBC (4.00-5.40) 10^6/ul Hgb (12.0-16.0) g/dl Hct (35-47) % MCV (80-97) fL MCH (27-31) pg MCHC (31-36) g/dl RDW (10.5-15) % Plt Count (150-450) 10^3/ul MPV (7.4-10.4) um3 Neut % (Auto) (38-83) % Lymph % (Auto) (25-47) % Norton % (Auto) (0-7) % Eos % (Auto) (0-6) % Baso % (Auto) (0-2) % Absolute Neuts (auto) (1.5-7.7) 10^3/ul Absolute Lymphs (auto) (1.0-4.8) 10^3/ul Absolute Monos (auto) (0-0.8) 10^3/ul Absolute Eos (auto) (0-0.6) 10^3/ul Absolute Basos (auto) (0-0.2) 10^3/ul Absolute Nucleated RBC 10^3/ul Nucleated RBC % INR (Anticoag Therapy) (0.77-1.02) APTT (26.0-36.3) seconds Sodium (135-145) mmol/L Potassium (3.5-5.0) mmol/L Chloride (101-111) mmol/L Carbon Dioxide (22-32) mmol/L Anion Gap (2-11) mmol/L BUN (6-24) mg/dL Creatinine (0.51-0.95) mg/dL Est GFR ( Amer) (>60) Est GFR (Non-Af Amer) (>60) BUN/Creatinine Ratio (8-20) Glucose (70-100) mg/dL Lactic Acid 0.8 (0.5-2.0) mmol/L Calcium (8.6-10.3) mg/dL Magnesium (1.9-2.7) mg/dL Total Bilirubin (0.2-1.0) mg/dL AST (13-39) U/L ALT (7-52) U/L Alkaline Phosphatase (34-104) U/L Troponin I (<0.04) ng/mL Total Protein (6.4-8.9) g/dL Albumin (3.2-5.2) g/dL Globulin (2-4) g/dL Albumin/Globulin Ratio (1-3) TSH (0.34-5.60) mcIU/mL Result Diagrams: 12/06/17 22:22 12/06/17 22:22 Lab Statement: Any lab studies that have been ordered have been reviewed, and results considered in the medical decision making process. - CT Brain CT CT Interpretation: No Acute Changes, Positive (See Comments) CT Interpretation Completed By: Radiologist - 1. No acute intracranial abnormality. 2. Age-related atrophy and mild chronic small vessel ischemic disease. This report has been reviewed by the ED physician. - EKG 22:03 Cardiac Rate: Other Rate - atrial paced at 60 bpm EKG Rhythm: Sinus Rhythm EKG Interpretation: Normal axis. Normal interval. No ischemic changes Re-Evaluation - Re-Evaluation First Eval Re-Evaluation Time: 01:00 Change: Improved Comment: Anxious to leave and doesn't want to be admitted. Course/Dx - Diagnoses Provider Diagnoses: TIA (transient ischemic attack) Discharge - Sign-Out/Discharge Documenting (check all that apply): Patient Departure - DC - Discharge Plan Condition: Stable Disposition: HOME Patient Education Materials: Transient Ischemic Attack (ED) Referrals: Jenni Johnston MD [Primary Care Provider] - Evelin Matos MD [Medical Doctor] - 1 Day Additional Instructions: Follow up with Dr. Matos, cardiology tomorrow. Take Aspirin once per day. RETURN TO THE EMERGENCY DEPARTMENT FOR CHANGING OR WORSENING SYMPTOMS. FOLLOW UP WITH PCP IN 1-2 DAYS. - Attestation Statements Document Initiated by Scribe: Yes Documenting Scribe: Shekhar Desai Provider For Whom Scribe is Documenting (Include Credential): Mono Bryant MD Scribe Attestation: IShekhar, scribed for Mono Bryant MD on 12/07/17 at 0314.
[2017-12-07 00:33] VITALS: BP 156/56
== END 2017-12-07 00:36 | disposition home or self-care (01) ==
LOC: ED 20:07
DX: G45.9 Transient cerebral ischemic attack, unspecified (principal); R07.9 Chest pain, unspecified; H18.51 Endothelial corneal dystrophy; M06.9 Rheumatoid arthritis, unspecified; Z95.2 Presence of prosthetic heart valve; Z95.0 Presence of cardiac pacemaker; Z79.82 Long term (current) use of aspirin; Z87.891 Personal history of nicotine dependence; Z91.81 History of falling
CPT/HCPCS: 36415; 70450; 80053; 83605; 83735; 84443; 84484; 85025; 85610; 85730; 93005; 99283

== ENCOUNTER → 2017-12-21 08:23 | Day surgery (SDC) | payer MEDICARE, BC ==
[~2017-12-21 08:23] MED LIST: Diazepam TAB(*) 5 MG ONE; Flumazenil* 0.1 MG/ML 5 ML MDV ONE; Lidocaine 1% INJ* 10 MG/ML 30 ML SDV ONE; Midazolam* 1 MG/ML 5 ML VIAL (5 MG) ONE; Naloxone* 0.4 MG/ML 1 ML VIAL ONE; ceFAZolin* 2 GM* X ONE DOSE - OR, MCH (Pyxis) (Duplex) IVPB; fentaNYL* 50 MCG/ML 2 ML VIAL (100 MCG VIAL) ONE
== END | disposition home or self-care (01) ==
LOC: CHICATH 08:23
PROVIDERS: ATTEND Specialist
DX: I44.2 Atrioventricular block, complete (principal); Z45.010 Encounter for checking and testing of cardiac pacemaker pulse generator [battery]; I25.10 Atherosclerotic heart disease of native coronary artery without angina pectoris; Z95.2 Presence of prosthetic heart valve; I10 Essential (primary) hypertension; E78.5 Hyperlipidemia, unspecified; I27.20 Pulmonary hypertension, unspecified; Z87.891 Personal history of nicotine dependence
CPT/HCPCS: 33228; 88300; 99156; 99157; A9270-GY; J0690; J2250; J2310; J3010

== ENCOUNTER 2019-03-27 11:58 | Emergency (ER) | payer MEDICARE, BC ==
--- OUTSIDE RECORDS SUMMARY | 2019-03-27 12:12 | XMS REPORT | Continuity of Care Document ---
:1930 External Reference #:[id number] Author Name Sarah Olivarez N.P. (transmitted by agent of provider Cait Gann) Address [address] [place] [id number] Care Team Providers Name Role Phone Jenni Johnston MD - Internal Care Team Information Yarn [facility]uler Medicine Problems Active Problems Provider Date Aortic valve disorder Shekhar Guerrier M.D., [facility], Onset: 03/21/2013 [facility] Chronic ischemic heart disease Shekhar Guerrier M.D., [facility], Onset: 03/21/2013 [facility] Benign essential hypertension Shekhar Guerrier M.D., [facility], Onset: 03/21/2013 [facility] Hyperlipidemia Shekhar Guerrier M.D., [facility], Onset: 03/21/2013 [facility] Mitral valve disorder Shekhar Guerrier M.D., [facility], Onset: 03/21/2013 [facility] Complete atrioventricular block Shekhar Guerrier M.D., [facility], Onset: 05/07/2013 [facility] Dyspnea Shekhar Guerrier M.D., [facility], Onset: 05/07/2013 [facility] Essential hypertension Shekhar Guerrier M.D., [facility], Onset: 11/02/2013 [facility] Cardiac pacemaker in situ Shekhar Guerrier M.D., [facility], Onset: 06/02/2015 [facility] Heart valve replacement Shekhar Guerrier M.D., [facility], Onset: 06/14/2016 [facility] Atherosclerotic heart disease of Shekhar Guerrier M.D., [facility], Onset: 12/15/2016 [place] coronary artery without angina [facility] pectoris Social History Type Date Description Comments Sex Unknown Smokeless Tobacco Never Used Smokeless Tobacco ETOH Use Occasionally consumes one glass nightly wine with dinner Tobacco Use Start: Unknown End: Patient is a former quit in 1980 Unknown smoker Recreational Drug Use Denies Drug Use Smoking Status Reviewed: 01/30/19 Patient is a former quit in 1981 smoker Exercise Type/Frequency Exercises rarely Allergies, Adverse Reactions, Alerts Active Allergies Reaction Severity Comments Date Percocet 11/30/2017 Inactive Allergies NKDA 11/14/2012 NKDA 11/30/2017 Medications Active Medications SIG Qnty Indications Ordering Date Provider Prednisone 1 by mouth every Unknown 07/28/2018 5mg Tablets day Xarelto 1 by mouth every 30tabs I48.91 Sarah GiaArleen Olivarez, 07/11/2018 15mg Tablets day N.P. Metoprolol Succinate 1.5 tabs by mouth 90tabs Qutaybquiana SArleen 12/14/2016 ER every day Josemanule Matos 25mg Tablets ER 24HR Methotrexate 2 tabs po every Unknown 06/07/2016 2.5mg tuesday Tablets Depakote 2 tabs at night Unknown 125mg Tablets DR Amlodipine Besylate 1 by mouth every Unknown 5mg day Tablets Losartan Potassium 1 by mouth every Unknown 25mg day Tablets Spiriva Handihaler 1 inhalation by Unknown mouth every 18mcg Capsules morning Proventil HFA 2 puffs by mouth Unknown every 4 hours as 108(90Base) mcg/Act needed Aerosol Genteal 1 gtt qid in each Unknown 0.25-0.3% Gel eye Multivitamins 1 by mouth every Unknown Capsules day Fish Oil 1 by mouth every Unknown 1000mg day Capsules Ocuvite Preservision 1 po bid Unknown Tablets Aspirin 1 by mouth every Unknown 81mg Tablets day Vitamin C qd Unknown 500mg Calcium 500 +D qd Unknown Flax Oil qd Unknown Oil Restasis one stone each eye Unknown 0.05% Emulsion bid Ropinirole HCL 1 po bid Unknown 0.5mg Tablets Bupropion HCL SR 1 po qd Farhan, 100mg Michelle, CAREER ORIENTATION TEACHER Tablets ER 12HR Atorvastatin Calcium 2 tabs by mouth Cardina, daily MD Jose Armando 20mg Tablets Medications Administered in Office Medication SIG Qnty Indications Ordering Provider Date Inj, Regadenoson, 0.1 MG Miriam Orosco M.D. 03/26/2013 Injection Technetium TC 99M Tetrofosmin, Per Miriam Orosco M.D. 03/26/2013 Unit Dose Up To 40 Millicuries Injection Immunizations Description No Information Available Vital Signs Date Vital Result Comment 01/30/2019 2:46pm Height 59 inches 4'11" Weight 100.00 lb Heart Rate 64 /min BP Systolic Sitting 92 mmHg Rue reg cuff BP Diastolic Sitting 60 mmHg Rue reg cuff Respiratory Rate 13 /min BMI (Body Mass Index) 20.2 kg/m2 Ejection Fraction 55-60% ECHO 08/09/2018 07/28/2018 2:23pm Height 59 inches 4'11" Weight 96.50 lb with shoes Heart Rate 72 /min regular, apical BP Systolic Sitting 130 mmHg Ra, reg cuff BP Diastolic Sitting 56 mmHg Ra, reg cuff BP Systolic Standing 138 mmHg Ra, reg cuff BP Diastolic Standing 60 mmHg Ra, reg cuff BMI (Body Mass Index) 19.5 kg/m2 Ejection Fraction 55%-60% Echo 04/14/18 Results Test Acquired Date Facility Test Result H/L Range Note Comp Metabolic 01/09/2019 [facility] Sodium 137 mmol/L Normal 135-145 Panel [address] [place] [address] [phone] Potassium 4.9 mmol/L Normal 3.5-5.0 Chloride 102 mmol/L Normal 101-111 Co2 Carbon Dioxide 30 mmol/L Normal 22-32 Anion Gap 5 mmol/L Normal 2-11 Glucose 97 mg/dL Normal 70-100 Blood Urea Nitrogen 29 mg/dL High 6-24 Creatinine 1.13 mg/dL High 0.51-0.95 BUN/Creatinine Ratio 25.7 High 8-20 Calcium 10.6 mg/dL High 8.6-10.3 Total Protein 6.7 g/dL Normal 6.4-8.9 Albumin 4.0 g/dL Normal 3.2-5.2 Globulin 2.7 g/dL Normal 2-4 Albumin/Globulin Ratio 1.5 Normal 1-3 Total Bilirubin 0.40 mg/dL Normal 0.2-1.0 Alkaline Phosphatase 72 U/L Normal 34-104 Alt 23 U/L Normal 7-52 Ast 26 U/L Normal 13-39 Egfr Non- 45.4 >60 Egfr 55.0 >60 1 CBC Auto 01/09/2019 [facility] White Blood 7.2 10^3/uL Normal 3.5-10.[address] [place] [address] [phone] Red Blood Count 4.37 10^6/uL Normal 3.70-4.87 Hemoglobin 13.8 g/dL Normal 12.0-16.0 Hematocrit 41 % Normal 35-47 Mean Corpuscular Volume 93 fL Normal 80-97 Mean Corpuscular Hemoglobin 32 pg High 27-31 Mean Corpuscular HGB Conc 34 g/dL Normal 31-36 Red Cell Distribution Width 15 % Normal 10-15 Platelet Count 163 10^3/uL Normal 150-450 Mean Platelet Volume 7.6 fL Normal 7.4-10.4 Abs Neutrophils 4.1 10^3/uL Normal 1.5-7.7 Abs Lymphocytes 2.3 10^3/uL Normal 1.0-4.8 Abs Monocytes 0.7 10^3/uL Normal 0-0.8 Abs Eosinophils 0.0 10^3/uL Normal 0-0.6 Abs Basophils 0.0 10^3/uL Normal 0-0.2 Abs Nucleated RBC 0.0 10^3/uL Granulocyte % 57.7 % Lymphocyte % 32.6 % Monocyte % 9.3 % Eosinophil % 0.1 % Basophil % 0.3 % Nucleated Red Blood Cells % 0.1 1 Because ethnic data is not always readily [...] 15-29 5 Kidney failure <15 (or dialysis) Procedures Date Code Description Status 01/30/2019 75852 EKG Tracing & Interpretation Completed 10/31/2018 02073 Icd Eval Sing,Dual,Multi Lead Remote Recpt Transm Tech Rev Completed Tech S 10/31/2018 93898 Icd Eval Sing,Dual,Multi Lead Remote Recpt Transm Tech Rev Completed Tech S 10/31/2018 67285 Pacemaker Check Remote Up To 90Days Single,Dual,Multiple Completed Lead 10/31/2018 12637 Pacemaker Check Remote Up To 90Days Single,Dual,Multiple Completed Lead 08/09/2018 48174 ECHO Transthoracic, Real-Time 2D With Doppler And Color Completed Flow 08/09/2018 48426 ECHO Transthoracic, Real-Time 2D With Doppler And Color Completed Flow Medical Devices Description No Information Available Encounters Type Date Location Provider Dx Diagnosis Office Visit 01/30/2019 [facility] Sarah Olivarez, I48.91 Unspecified atrial 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 01/30/2019 I25.10 Atherosclerotic heart disease of [place] Sarah Olivarez, N.P. coronary artery without angina pectoris 01/30/2019 R68.84 Jaw pain Sarah Olivarez, N.P. 01/30/2019 E78.5 Hyperlipidemia, unspecified Sarah SArleen Olivarez, N.P. 01/30/2019 R60.9 Edema, unspecified Sarah S. Sher, N.P. 01/30/2019 I10 Essential (primary) hypertension Sarah Olivarez, N.P. 10/31/2018 I44.2 Atrioventricular block, complete Evelin Matos M.D. 10/31/2018 I44.2 Atrioventricular block, complete Remote Device Checks 10/31/2018 Z95.0 Presence of cardiac pacemaker Jose Armando VossD. 10/31/2018 Z95.0 Presence of cardiac pacemaker Remote Device Checks 10/31/2018 I48.91 Unspecified atrial fibrillation Evelin Matos M.D. 10/31/2018 I48.91 Unspecified atrial fibrillation Remote Device Checks 08/09/2018 I25.10 Atherosclerotic heart disease of [place] Evelin Matos M.D. coronary artery without angina pectoris 08/09/2018 I25.10 Athscl heart disease of [place] coronary Ica ECHO Schedule artery w/o ang pctrs 08/09/2018 I44.2 Atrioventricular block, complete Ica ECHO Schedule 08/09/2018 Z95.0 Presence of cardiac pacemaker Evelin Matos M.D. 08/09/2018 Z95.0 Presence of cardiac pacemaker Ica ECHO Schedule 08/09/2018 I48.2 Chronic atrial fibrillation Ica ECHO Schedule 08/09/2018 Z95.2 Presence of prosthetic heart valve Evelin Matos M.D. 08/09/2018 Z95.2 Presence of prosthetic heart valve Ica ECHO Schedule Plan of Treatment Future Appointment(s):08/07/2019 2:30 pm - Ica Pacer Schedule at [facility]08/07/2019 3:00 pm - Sarah Olivarez, N.P. at [facility]03/20/2019 3:00 pm - Sarah Olivarez, N.P. at [facility]2019 9:30 am - Evelin Matos M.D. at [facility]01/30/2019 - Sarah Olivarez, N.P.I48.91 Unspecified atrial fibrillationRecommendations:You are now out of afib.I25.10 Atherosclerotic heart disease of [place] coronary artery without angina tqfdkukuH15.84 Jaw painNew Orders:Stress Test, Pharmacologic Nuclear (Lexiscan), Scheduled: E78.5 Hyperlipidemia, khwvqsrkircO61.9 Edema, [id number] Essential ( primary) hypertensionFollow up:OV after stress test 02/2019 Sarah 6 mo OV SaraRecommendations:BP high here 170/60 Recommend checking BP at [facility] today on the way home Call us with BP you get this PM Check 1x week If BP low then we could cut back amlodipine which might help with leg swelling. Functional Status Description No Information Available Mental Status Description No Information Available Referrals Description No Information Available
--- NOTE | 2019-03-27 14:16 | ED ---
Lower Extremity - HPI Summary HPI Summary: Patient is an 89 y/o F presenting to the ED for a chief complaint of left LE erythema, swelling, and pain. On triage, patient rates the pain as 7/10 in severity. On the night of 03/26/19, she began to have left LE pain. The pain worsens with movement. Patient denies having a fever. She reports having cellulitis for the last 3 weeks but has not been on antibiotics. Patient has a home health aide that changes the dressings daily on her left LE. Patient sees Dr. Johnston who did not want to prescribe antibiotics for the cellulitis and was instead prescribed a diuretic and decreased her dosage for prednisone. PMHx is significant for HTN and left ankle fracture (remote). - History of Current Complaint Chief Complaint: EDRashSkinAbscess Stated Complaint: LEFT LEG CELLULITES PER PT Time Seen by Provider: 03/27/19 13:59 Hx Obtained From: Patient Severity Initially: Severe Severity Currently: Severe Pain Intensity: 7 Pain Scale Used: 0-10 Numeric Timing: Constant Associated Signs And Symptoms: Positive: Swelling - Left LE, Redness - Left LE. Negative: Fever Aggravating Factor(s): Movement Alleviating Factor(s): Nothing - Allergies/Home Medications Allergies/Adverse Reactions: Allergies Allergy/AdvReac Type Severity Reaction Status Date / Time acetaminophen [From Percocet] Allergy Unknown Verified 12/21/17 08:51 Reaction Details oxycodone [From Percocet] Allergy Unknown Verified 12/21/17 08:51 Reaction Details PMH/Surg Hx/FS Hx/Imm Hx Previously Healthy: Yes Endocrine/Hematology History: Denies: Hx Diabetes Cardiovascular History: Reports: Hx Angina, Hx Coronary Artery Disease, Hx Embolism, Hx Hypercholesterolemia, Hx Hypertension, Hx Pacemaker/ICD, Hx Peripheral Vascular Disease, Hx Valvular Heart Disease - valve replacement, Other Cardiovascular Problems/Disorders - BLOOD CLOT BTWN HRT AND LUNGS REMOVED Respiratory History: Reports: Hx Chronic Obstructive Pulmonary Disease (COPD), Hx Pulmonary Embolism GI History: Reports: Hx Irritable Bowel, Other GI Disorders - IRRITABLE BOWEL SYNDROME, ISCHEMIC COLITIS History: Denies: Hx Dialysis, Hx Renal Disease Musculoskeletal History: Reports: Hx Arthritis, Hx Rheumatoid Arthritis, Hx of Fracture(s) - Left ankle, Other Musculoskeletal History - RESTLESS LEG Sensory History: Reports: Hx Contacts or Glasses, Hx Macular Degeneration, Hx Hearing Aid, Hx Hearing Problem Denies: Hx Legally Blind, Hx Deafness Opthamlomology History: Reports: Hx Contacts or Glasses, Hx Macular Degeneration Denies: Hx Legally Blind EENT History: Denies: Hx Deafness Neurological History: Comment Only: Hx Seizures - Taking Depakote but denies seizure hx Psychiatric History: Reports: Hx Anxiety - Cancer History Hx Chemotherapy: No Hx Radiation Therapy: No - Surgical History Surgical History: Yes Surgery Procedure, Year, and Place: open heart, 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, PACER, CORNEA TRANSPLANT,RIGHT CAROTID ENDARTERECTOMY Hx Anesthesia Reactions: No - Immunization History Date of Tetanus Vaccine: unknown Infectious Disease History: No Infectious Disease History: Reports: Hx Shingles Denies: Traveled Outside the [place] in Last 30 Days - Family History Known Family History: Negative: Cardiac Disease, Hypertension, Diabetes - Social History Occupation: Retired Lives: Alone Alcohol Use: Occasionally Hx Substance Use: No Substance Use Type: Reports: None Hx Tobacco Use: Yes Smoking Status (MU): Former Smoker Review of Systems Negative: Fever Positive: Myalgia - Left LE, Edema - Left LE Positive: Other - Positive erythema of the left LE All Other Systems Reviewed And Are Negative: Yes Physical Exam - Summary Physical Exam Summary: Constitutional: Well-developed, Well-nourished, Alert. (-) Distressed Skin: Warm, Dry HENT: Normocephalic; Atraumatic Eyes: Conjunctiva normal Neck: Musculoskeletal ROM normal neck. (-) JVD, (-) Stridor, (-) Nuchal rigidity Cardio: Rhythm regular, rate normal, Heart sounds normal; Intact distal pulses; Radial pulses are 2+ and symmetric. (-) Murmur Pulmonary/Chest wall: Effort normal. (-) Respiratory distress, (-) Wheezes, (-) Rales Abd: Soft, (-) tenderness, (-) Distension, (-) Guarding, (-) Rebound Musculoskeletal: 10 by 8 erythema of the anterior leiva with 1+ edema to the foot , tenderness of the anterior leiva Lymph: (-) Cervical adenopathy Neuro: Alert, Oriented x3 Psych: Mood and affect Normal Triage Information Reviewed: Yes Vital Signs On Initial Exam: Initial Vitals Temp Pulse Resp BP Pulse Ox 98.6 F 59 18 144/52 99 03/27/19 12:01 03/27/19 12:01 03/27/19 12:01 03/27/19 12:01 03/27/19 12:01 Vital Signs Reviewed: Yes Procedures - Sedation Patient Received Moderate/Deep Sedation with Procedure: No Diagnostics - Vital Signs Vital Signs Temp Pulse Resp BP Pulse Ox 03/27/19 12:01 98.6 F 59 18 144/52 99 - Laboratory Lab Statement: Any lab studies that have been ordered have been reviewed, and results considered in the medical decision making process. - Radiology Lower Extremity X-ray Radiology Interpretation Completed By: Radiologist Summary of Radiographic Findings: Lower Extremity X-ray IMPRESSION: 1. Low anterior soft tissue swelling. 2. Vascular calcifications. 3. No fracture or osseous erosion (radiograph is insensitive for acute osteomyelitis). Reviewed by Dr. Bhandari. Lower Extremity Course/Dx - Course Course Of Treatment: 89 y/o F w recent cellulitis (not on abx) p/w RLE cellulitis. - PE w LLE cellulitis, tenderness to anterior leiva. VSS, afebrile. XR w/o free air. Given keflex. (did recently take one dose amoxicillin yesterday for dental procedure). - tylenol for pain (denies allergy), return for worsening. - Diagnoses Provider Diagnoses: Left leg pain, Cellulitis Discharge ED - Sign-Out/Discharge Documenting (check all that apply): Patient Departure - Discharge - Discharge Plan Condition: Stable Disposition: HOME Prescriptions: Cephalexin SUSP* [Keflex SUSP 250 MG/5 ML*] 500 mg PO QID 7 Days #1 oral.susp Patient Education Materials: Cellulitis (ED) Referrals: Jenni Johnston MD [Primary Care Provider] - Additional Instructions: You were seen in the emergency department for leg pain. You have cellulitis. Please take Keflex 4 times a day. Please return for worsening redness, swelling , pain to the area or fevers. Please follow up with your primary care doctor in next 2-3 days and return to emergency department for worsening or concerning symptoms. It was a pleasure taking care of you today. - Billing Disposition and Condition Condition: STABLE Disposition: Home - Attestation Statements Document Initiated by Scribe: Yes Documenting Scribe: Rubi Linder Provider For Whom Scribe is Documenting (Include Credential): Edna Bhandari MD Scribe Attestation: I, Rubi Linder, scribed for Edna Bhandari MD on 03/27/19 at 1529. Scribe Documentation Reviewed: Yes Provider Attestation: The documentation as recorded by the scribe, Rubi Linder accurately reflects the service I personally performed and the decisions made by me, Edna Bhandari MD Status of Scribe Document: Viewed
[2019-03-27] MEDS ORDERED: Cephalexin CAP* 500 MG PO ONE (14:54)
[2019-03-27] MEDS ORDERED: Acetaminophen ADULT LIQ* 650 MG/20.3 ML UDC PO ONE (15:28)
[2019-03-27] MEDS ORDERED: Cephalexin SUSP* ORALSYR 50 MG/ML PO ONE (16:00)
[2019-03-27 16:02] VITALS: BP 147/43
== END 2019-03-27 16:04 | disposition home or self-care (01) ==
LOC: ED 11:58
DX: L03.116 Cellulitis of left lower limb (principal); I10 Essential (primary) hypertension; I25.10 Atherosclerotic heart disease of native coronary artery without angina pectoris; E78.00 Pure hypercholesterolemia, unspecified; I73.9 Peripheral vascular disease, unspecified; J44.9 Chronic obstructive pulmonary disease, unspecified; F41.9 Anxiety disorder, unspecified; Z95.2 Presence of prosthetic heart valve; Z95.810 Presence of automatic (implantable) cardiac defibrillator; Z86.711 Personal history of pulmonary embolism; Z87.891 Personal history of nicotine dependence; Z79.899 Other long term (current) drug therapy; Z88.5 Allergy status to narcotic agent; Z88.8 Allergy status to other drugs, medicaments and biological substances
CPT/HCPCS: 99282; A9270-GY